=== PATIENT | female | born 1945 | race Caucasian/White ===

== ENCOUNTER → 2016-11-27 | Outpatient (CLI) | payer OTHER ==
[~2016-11-27] MED LIST: ASPCH81X PO; ATEN-173 PO; ATOR-24 PO; CALC500C70 PO; CHOL1CAP57 PO; GLUC1CAP35 PO; HYDR12.56 PO; LORA-741 PO; ZNTT/150 PO
[2016-11-27 13:19] LABS: BASO % 0.8 %; BASO ABS # 0.04 K/uL (0-0.2); COMPLETE YES; EOS % 1.8 %; HEMATOCRIT 38.5 % (37-47); IG% 0.2 %; LYMPH % 32.7 %; LYMPH ABS # 1.63 K/uL (1.2-3.4); MEAN CELL VOLUME 92.5 fL (80-100); MEAN CORPUSCULAR HEMOGLOBIN 31.5 pg (25-34); NEUT % 54.5 %; PLATELET COUNT 216 K/uL (130-400); RED BLOOD COUNT 4.16 M/uL (4.2-5.4); WHITE BLOOD COUNT 4.99 K/uL (4.8-10.8)
[2016-11-27 13:45] LABS: ALT/SGPT 26 U/L (12-78); BLOOD UREA NITROGEN 11 mg/dl (7-18); CALCIUM 9.1 mg/dl (8.5-10.1); CARBON DIOXIDE 30 mmol/L (21-32); CHLORIDE 107 mmol/L (98-107); CHOLESTEROL 159 mg/dl (0-200); CREATININE 0.76 mg/dl (0.60-1.20); GLUCOSE 93 mg/dl (70-99); POTASSIUM 4.3 mmol/L (3.5-5.1); SODIUM 141 mmol/L (136-145); TRIGLYCERIDES 184 mg/dl (0-150); VERY LOW DENSITY LIPOPROT CALC 37 mg/dl
[2016-11-27 13:48] LABS: ALB/GLOB RATIO 1.2 (0.9-2); ALKALINE PHOSPHATASE 70 U/L (45-117); AST/SGOT 15 U/L (15-37); CHOLESTEROL/HDL RATIO 3.5; HDL CHOLESTEROL 46 mg/dl; LDL CHOLESTEROL CALCULATED 76 mg/dl
== END | disposition home or self-care (01) ==
LOC: C.LABMFLN 07:45
PROVIDERS: ATTEND Family Medicine
DX: I10 Essential (primary) hypertension (principal); R39.9 Unspecified symptoms and signs involving the genitourinary system; E78.5 Hyperlipidemia, unspecified

== ENCOUNTER → 2016-12-10 | Outpatient (CLI) | payer OTHER | END | disposition home or self-care (01) | LOC: C.PATHSPEC 16:56 | PROVIDERS: ATTEND Dermatology | DX: L57.0 Actinic keratosis (principal) ==

== ENCOUNTER → 2017-02-10 | Outpatient (CLI) | payer OTHER ==
[2017-02-10 17:29] LABS: HEMATOCRIT 39.4 % (37-47); MEAN CELL VOLUME 93.4 fL (80-100); MEAN CORPUSCULAR HEMOGLOBIN 30.3 pg (25-34); MEAN CORPUSCULAR HGB CONC 32.5 g/dl (32-36); MEAN PLATELET VOLUME 9.8 fL (7.4-10.4); PLATELET COUNT 241 K/uL (130-400); RED BLOOD COUNT 4.22 M/uL (4.2-5.4); WHITE BLOOD COUNT 5.37 K/uL (4.8-10.8)
[2017-02-10 17:38] LABS: PARTIAL THROMBOPLASTIN RATIO 0.9; PROTHROMBIN TIME (PATIENT) 10.2 SECONDS (9.0-12.0)
[2017-02-10 17:46] LABS: POTASSIUM 4.1 mmol/L (3.5-5.1)
== END | disposition home or self-care (01) ==
LOC: C.LAB1850 16:28
PROVIDERS: ATTEND Physician Assistant
DX: Z01.818 Encounter for other preprocedural examination (principal)

== ENCOUNTER → 2017-02-14 | Day surgery (SDC) | payer OTHER ==
[2017-02-12 11:12] VITALS: Ht 157.5 cm; Wt 61.4 kg
[~2017-02-14] VITALS: Ht 157.5 cm; Wt 61.4 kg
[~2017-02-14] MED LIST changes: +ACETAMINOPHEN 325 MG TAB PO PRN; +ATROPINE SULFATE 0.1 MG/ML 5ML SYR IV PRN; +CEFAZOLIN 2000 MG/60 ML D5W IV SCH; +EpHEDrine SULFATE 50MG/5ML SYR ONE; +EpHEDrine SULFATE INJ 50 MG/ML AMP IV PRN; +FENTANYL CITRATE INJ 50 MCG/1 ML 2 ML VIAL IV PRN; +FENTANYL CITRATE INJ 50 MCG/1 ML 2 ML VIAL ONE; +LACTATED RINGER'S 1000ML 1,000 ML IV SCH; +LIDOCAINE HCL 2% 2 ML VIAL (20MG/ML) ONE; +LIDOCAINE/EPINEPHRINE 1% INJ 50 ML VIAL ONE; +METOCLOPRAMIDE HCL INJ 5 MG/ML 2 ML VIAL IV PRN; +MIDAZOLAM HCL 1 MG/ML 2ML VIAL ONE; +ONDANSETRON INJ 2 MG/ML 2 ML VIAL IV PRN; +ONDANSETRON INJ 2 MG/ML 2 ML VIAL ONE; +OXYCODONE/ACETAMINOPHEN 5-325 TAB PO PRN; +PATIENT'S ALLERGY INFO NEEDS ENTERED SCH; +PROPOFOL IV EMULSION 10 MG/ML 20 ML VIAL IV ONE; +SODIUM CHLORIDE 0.9% 1000ML 1,000 ML IV SCH
--- NOTE | 2017-02-14 12:47 | History & Physical Bridge - [place] ---
H&P Re-Evaluation Bridge Note: I have examined the patient, reviewed the History & Physical and in the interval since the performance of the History & Physical I have noted the following changes of clinical significance: No changes noted
[2017-02-14 14:19] VITALS: TEMP 36.8
--- NOTE | 2017-02-14 14:20 | [facility] Post Operative Brief Note ---
Immediate Operative Summary Operative Date Feb 14, 2017. Pre-Operative Diagnosis Right Lower Leg Squamous Cell Carcinoma Post-Operative Diagnosis Same Procedure(s) Performed Right Lower Extremity Excision Of Squamous Cell Carcinoma With Full Thickness Graft Surgeon Dr. Estrada Hydraulic Governor Assembler Surgeon(s) Sheila Frye PA-C Estimated Blood Loss 1 ml Findings SCC right lower leg, margins negative Specimens A.) Squamous Cell Skin Cancer right Lower Extremity- Suture @ 12:00 FROZEN Anesthesia sedation with local Complication(s) None Disposition Recovery Room / PACU
--- NOTE | 2017-02-14 14:20 | Discharge Instructions ---
Discharge Instructions Date of Service Feb 14, 2017. Admission Reason for Admission: Right Lower Leg Squamous Cell Carcinoma Discharge Discharge Diagnosis / Problem: Squamous cell carcinoma right lower leg Discharge Goals Goal(s): Decrease discomfort Activity Recommendations Activity Limitations: per Instructions/Follow-up section ACTIVITY RECOMMENDATIONS: __Normal activities _x_No bending, lifting or straining. Wear boot for at least 2 weeks. No weight bearing without the boot on __No driving __Driving allowed when you are off pain medications _x_Walking permitted with boot __You should have help at home for ___ days DRESSINGS: __No dressings required _x_Keep dressings dry/in place until first office visit __Remove dressings ___ and leave dressings off __Apply ice ___ days __Remove dressings and reapply garment __Apply antibiotic ointment (Bacitracin, Neosporin, etc) to wounds 3-4 times/ day for 10 days BATHING: _x_Keep dressings dry _x_Sponge bathing permitted __Showering permitted _x_No swimming, hot tubs or soaking in a tub MEDICATIONS: Resume previous medications unless instructed otherwise by your surgeon. _x_Do not use aspirin, Motrin, Advil or Ibuprofen as these may promote bleeding. Please use Tylenol. _x_Prescription(s) provided: pain medication and antibiotics OTHER INSTRUCTIONS: __Record drain output 2-3 times per day SPECIAL CARE INSTRUCTIONS: * It is normal to have a mild fever after surgery. If your temperature is higher than 101.5 degrees F, please call the office at [phone]. * Constipation is a typical side effect of pain medication. An over-the- counter stool softener will help relieve this. * Leaking around surgical drains may occur and should not cause concern. Sometimes these drains become clogged. If this happens, remove the bulb and milk the clot out of the tube, then replace the bulb. * Drainage from wounds after liposuction is normal and should be expected. Garments will become soiled. You should protect furniture and bedding. This drainage should mostly subside within 2-3 days. Leave garments in place unless instructed to remove them. * If you have unusual drainage from a wound or are concerned you have an infection or have any questions or concerns, please call the office at [phone]. FOLLOW UP VISIT: If not already scheduled, please call the office, , when you return home after surgery to schedule an appointment to be seen in __7_ days. . Current Hospital Diet Patient's current hospital diet: Discharge Diet Recommended Diet: Regular Diet Procedures Procedures Performed: Right Lower Extremity Excision Of Squamous Cell Carcinoma With Full Thickness Graft Pending Studies Studies pending at discharge: yes List of pending studies: pathology Laboratory Results Lipid Panel Test 11/27/16 09:35 Range/Units Triglycerides Level 184 H 0-150 mg/dl Cholesterol Level 159 0-200 mg/dl HDL Cholesterol 46 mg/dl Cholesterol/HDL Ratio 3.5 LDL Cholesterol, Calculated 76 mg/dl Medical Emergencies . Who to Call and When: Medical Emergencies: If at any time you feel your situation is an emergency, please call 911 immediately. . Non-Emergent Contact Non-Emergency issues call your: Primary Care Provider, Surgeon . "Provider Documentation" section prepared by Mary Kate Frye. . VTE Core Measure Inpt VTE Proph given/why not?: SCD's [place] Drug Monitoring Program Search Results: no issues identified
[2017-02-14 14:44] VITALS: BP 151/75; PULSE 74; O2SAT 98
--- NOTE | 2017-02-14 14:46 | Anesthesia Progress Nt - [facility] ---
Anesthesia Post Op Note Date & Time Feb 14, 2017 at 14:46 Vital Signs Pain Intensity: 0 Vital Signs Past 12 Hours Date Time Temp Pulse Resp B/P (MAP) Pulse Ox O2 Delivery O2 Flow Rate FiO2 02/14/17 14:44 74 16 151/75 (100) 98 Room Air 02/14/17 14:19 36.8 83 16 136/79 (98) 100 Room Air 02/14/17 10:24 36.4 56 22 169/94 (119) 95 Notes Mental Status: alert / awake / arousable, participated in evaluation Pt Amnestic to Procedure: Yes Nausea / Vomiting: adequately controlled Pain: adequately controlled Airway Patency, RR, SpO2: stable & adequate BP & HR: stable & adequate Hydration State: stable & adequate Anesthetic Complications: no major complications apparent
--- NOTE | 2017-02-14 15:55 | OPERATIVE REPORT ---
DATE OF OPERATION: 02/14/2017 PREOPERATIVE DIAGNOSIS: Right lower extremity squamous cell carcinoma. POSTOPERATIVE DIAGNOSIS: Same. PROCEDURE: Excision of squamous cell carcinoma right anterior lower extremity with full thickness skin graft. SURGEON: Dr. Lucy Estrada. MEDIA EXECUTIVE: Mary Kate Frye PA-C. ANESTHESIA: Local with sedation. COMPLICATIONS: None. INDICATION FOR THE PROCEDURE: The patient is a 71-year-old female who was referred to me by Dr. Anderson after having undergone biopsy of a rapidly growing lesion of her right anterior lower leg which was found to be squamous cell carcinoma. This large size and location, office excision was not going to be achievable, and therefore we elected to proceed with excision at the surgery center with primary closure versus full thickness skin grafting. OPERATION AND FINDINGS: BRIEF DESCRIPTION OF THE PROCEDURE: Risks, benefits, and alternatives of the procedure were explained to the patient who agreed and signed consent. She was identified and marked in the preoperative holding area. She was brought to the operating room where she was positioned supine and placed under sedation without incident. Surgical site was prepped and draped sterilely. A time-out procedure was performed. The nodule as well as the surrounding erythema was measured and marked. 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 I therefore marked additional 5 mm margin and injected 1% lidocaine with epinephrine. A 15 blade scalpel made the circular incision. Incision was carried into subcutaneous fat. The lesion was removed with some underlying subcutaneous fat. As I was planning on grafting I did elect to send the specimen for frozen section while harvesting the graft. Hemostasis was achieved with electrocautery. Suture was marked 12 o'clock and the lesion was sent for pathology. Final defect size was 4 x 3.5 cm. A graft harvest was marked for the right groin in an elliptical fashion. Lidocaine 1% with epinephrine was used to anesthetize the area. A 15-blade scalpel made the elliptical incision. Skin was removed with some underlying subcutaneous tissue. Hemostasis was achieved. The wound was reapproximated using 3-0 PDS and 4-0 Monocryl running subcuticular suture. The graft was defatted and once the graft was adequately thinned and hair follicles had been removed. The graft was transferred to the recipient bed. At this point the lab did call and say that 9 o'clock margin was closest but all margins were clearly negative. The graft was sutured into place using 4-0 chromic interrupted sutures as well as 4-0 silk tie over bolster sutures. Xeroform and cotton was tied over the graft to provide pressure. The surgical site was dressed using dry dressings and an Jose Cruz wrap. The patient has a CAM walker which she will use. The procedure was tolerated well. The patient was awakened and transferred to recovery room in satisfactory condition. I attest to the content of the Intraoperative Record and any orders documented therein. Any exception s are noted below.
== END | disposition home or self-care (01) ==
LOC: X.SURG 09:09
PROVIDERS: ATTEND Plastic Surgery
DX: C44.722 Squamous cell carcinoma of skin of right lower limb, including hip (principal); I25.10 Atherosclerotic heart disease of native coronary artery without angina pectoris; I10 Essential (primary) hypertension; E78.5 Hyperlipidemia, unspecified; K21.9 Gastro-esophageal reflux disease without esophagitis; E55.9 Vitamin D deficiency, unspecified; M81.0 Age-related osteoporosis without current pathological fracture; Z79.82 Long term (current) use of aspirin; Z79.899 Other long term (current) drug therapy

== ENCOUNTER → 2017-04-17 | Outpatient (CLI) | payer OTHER ==
[~2017-04-17] MED LIST changes: -ACETAMINOPHEN 325 MG TAB PO PRN; -ASPCH81X PO; -ATROPINE SULFATE 0.1 MG/ML 5ML SYR IV PRN; -CEFAZOLIN 2000 MG/60 ML D5W IV SCH; -EpHEDrine SULFATE 50MG/5ML SYR ONE; -EpHEDrine SULFATE INJ 50 MG/ML AMP IV PRN; -FENTANYL CITRATE INJ 50 MCG/1 ML 2 ML VIAL IV PRN; -FENTANYL CITRATE INJ 50 MCG/1 ML 2 ML VIAL ONE; -LACTATED RINGER'S 1000ML 1,000 ML IV SCH; -LIDOCAINE HCL 2% 2 ML VIAL (20MG/ML) ONE; -LIDOCAINE/EPINEPHRINE 1% INJ 50 ML VIAL ONE; -METOCLOPRAMIDE HCL INJ 5 MG/ML 2 ML VIAL IV PRN; -MIDAZOLAM HCL 1 MG/ML 2ML VIAL ONE; -ONDANSETRON INJ 2 MG/ML 2 ML VIAL IV PRN; -ONDANSETRON INJ 2 MG/ML 2 ML VIAL ONE; -OXYCODONE/ACETAMINOPHEN 5-325 TAB PO PRN; -PATIENT'S ALLERGY INFO NEEDS ENTERED SCH; -PROPOFOL IV EMULSION 10 MG/ML 20 ML VIAL IV ONE; -SODIUM CHLORIDE 0.9% 1000ML 1,000 ML IV SCH
== END | disposition home or self-care (01) ==
LOC: C.PATHSPEC 17:28
PROVIDERS: ATTEND Dermatology
DX: L82.1 Other seborrheic keratosis (principal)

== ENCOUNTER → 2017-12-04 | Outpatient (CLI) | payer OTHER ==
[~2017-12-04] MED LIST changes: +RANI150T85 PO; -ZNTT/150 PO
[2017-12-04 13:08] LABS: BASO % 0.7 %; BASO ABS # 0.04 K/uL (0-0.2); EOS % 1.6 %; EOS ABS # 0.09 K/uL (0-0.5); HEMATOCRIT 37.9 % (37-47); HEMOGLOBIN 13.2 g/dL (12.0-16.0); LYMPH % 37.9 %; LYMPH ABS # 2.07 K/uL (1.2-3.4); MEAN CORPUSCULAR HGB CONC 34.8 g/dl (32-36); MEAN PLATELET VOLUME 9.8 fL (7.4-10.4); MONO % 9.5 %; MONO ABS # 0.52 K/uL (0.11-0.59); NEUT % 50.3 %; NEUT ABS # 2.74 K/uL (1.4-6.5); PLATELET COUNT 248 K/uL (130-400); RED CELL DISTRIBUTION WIDTH CV 12.9 % (11.5-14.5); RED CELL DISTRIBUTION WIDTH SD 43.4 fL (36.4-46.3); WHITE BLOOD COUNT 5.46 K/uL (4.8-10.8)
[2017-12-04 13:32] LABS: ALBUMIN 3.9 gm/dl (3.4-5.0); ALT/SGPT 31 U/L (12-78); AST/SGOT 21 U/L (15-37); BLOOD UREA NITROGEN 14 mg/dl (7-18); CALCIUM 8.8 mg/dl (8.5-10.1); CARBON DIOXIDE 27 mmol/L (21-32); CREATININE 0.84 mg/dl (0.60-1.20); GLUCOSE 98 mg/dl (70-99); POTASSIUM 3.7 mmol/L (3.5-5.1); SODIUM 137 mmol/L (136-145)
[2017-12-04 13:42] LABS: ALKALINE PHOSPHATASE 65 U/L (45-117); CHOLESTEROL 163 mg/dl (0-200); LDL CHOLESTEROL CALCULATED 80 mg/dl; TOTAL PROTEIN 7.5 gm/dl (6.4-8.2)
== END | disposition home or self-care (01) ==
LOC: C.LABMFLN 10:26
PROVIDERS: ATTEND Family Medicine
DX: I25.10 Atherosclerotic heart disease of native coronary artery without angina pectoris (principal); E78.5 Hyperlipidemia, unspecified

== ENCOUNTER → 2017-12-26 | Outpatient (CLI) | payer OTHER | END | disposition home or self-care (01) | LOC: C.LABMFLN 14:30 | PROVIDERS: ATTEND Family Medicine | DX: R10.9 Unspecified abdominal pain (principal) ==

== ENCOUNTER 2018-11-03 04:52 | Inpatient (IN) ==
--- NOTE | 2018-10-20 09:33 | Anesthesiology Consultation ---
Date of Service October 20, 2018 Assessment & Plan (1) Encounter for pre-operative examination: Chart Review Chart Review: Acceptable Risk for Surgery and Patient seen in Pre Admission Testing Consults Requested none Teaching & Discussion Pre-Anesthesia Teaching/Discussion Notes: Instructed NPO after midnight before surgery, except medications with 15 cc of water. Medication instructions provided according to the PAT guidelines. History Surgery Operation Date: 11/03/18 12:30 Proposed Procedures p Left Anterior Total Hip Arthroplasty - Chetan Marina DO Height/Weight Height: 5 ft 2 in Weight: 61.7 kg Allergies Allergy/AdvReac Type Severity Reaction Status Date / Time No Known Drug Allergies Allergy Unknown . Verified 10/12/18 14:56 Medications Home Medications Medication Instructions Recorded Confirmed Last Taken aspirin [Aspirin Low Dose] 81 mg PO QPM 10/12/18 10/12/18 Unknown atenolol 25 mg PO QAM 10/12/18 10/12/18 Unknown atorvastatin 40 mg PO PM 10/12/18 10/12/18 Unknown calcium carbonate-vitamin D3 1 cap PO BID 10/12/18 10/12/18 Unknown [Calcium 600 + D(3)] cholecalciferol (vitamin D3) 2,000 unit PO QAM 10/12/18 10/12/18 Unknown [Vitamin D3] [id number]-aguila-bosw 1 tab PO BID 10/12/18 10/12/18 Unknown [Glucosamine-Chondroitin 3X] hydrochlorothiazide 12.5 mg PO QAM 10/12/18 10/12/18 Unknown lorazepam 0.5 mg PO HS PRN 10/12/18 10/12/18 Unknown ranitidine HCl 150 mg PO BID 10/12/18 10/12/18 Unknown Past Medical History Medical History GERD (gastroesophageal reflux disease) High cholesterol History of skin cancer RIGHT LEG Hypertension Osteoarthritis Past Surgical History Surgical History Hx of appendectomy Hx of cardiac cath "YEARS" AGO DEVELOPED SHORTNESS OF BREATH - SEEN BY CARDIOLOGY ([facility]). SENT TO [facility] IN [place] FOR CATH. Hx of colonoscopy Past Anesthesia History No Hx of Anesthesia Complications and No Family Hx of Anesthesia Complications History of PONV No Motion Sickness Screening History of Motion Sickness: No Social History Smoking Status: Never smoker Do You Dip or Chew Tobacco: No Hx Alcohol Use: No Hx Substance Use: No Exercise / Class Metabolic Activity II 4-5 Yardwork/Stairs/Walk up hill (Cleans homes for elderly, walks on nice days, able to climb FOS. Denies CP or SOB. ) Review of Systems Patient denies chest pain, shortness of breath, dyspnea on exertion, cough, wheezing, palpitations. +joint pain (hip) +acid reflux (controlled with medications) Physical Exam Vital Signs BP: 131/82 P: 62 R: 14 T: 97.4 SPO2: 100% on RA ENMT Mouth: + dentures (Upper and Lower) and + edentulous Thyromental Distance: < 3.5 Finger Breadths (3) Mallampati Class: II Neck normal visual inspection and trachea midline; neck extension not limited Respiratory normal respiratory effort Auscultation: lungs clear to auscultation bilaterally Cardiovascular Rate/Rhythm: regular rate and regular rhythm Heart Sounds: no murmur Vessels: no carotid bruit Neurologic moves all extremities Psychiatric Orientation: alert and oriented x 3 Testing Electrocardiogram Date: 10/20/18 Findings: + NSR @ (60) Left axis deviation. Non specific ST abnormality. Chest X-Ray Date: 10/20/18 Findings: + NAD Stress Test Date: 06/28/13 Type: exercise Resting EF: >70% Functional capacity of 4.4 METS. Adequate cardiovascular stress. No significant arrhythmias were noted. Normal blood pressure response to exercise. Accelerated heart rate response may be related to holding betablocker or it may suggest poor physical conditioning. Borderline EKG changes noted with exercise which may suggest ischemia or it may be due to LVH. No echocardiographic wall motion abnormalities noted to suggest ischemia. Upsloping ST depression of 0.5-1.0 mm in leads II, III, aVF, and V6 along with accelerated HR response noted early in exercise. Patient held atenolol in preparation for testing as direced. Occasional PACs were noted during stress. Sinus rhythm was noted at rest. The stress test was terminated due to target heart rate achieved. Heart rate response to stress was normal. Blood pressure response to exercise was normal. Laboratory Results 10/20/18 09:56 10/20/18 09:56 Blood Type A Positive 10/20/18 Antibody Screen NEGATIVE 10/20/18: PT 10.2 Seconds (9.0-12.0) 10/20/18: INR 1.0 (0.9-1.1) 10/20/18: APTT 25.0 Seconds (21.0-31.0) 10/20/18
--- NOTE | 2018-10-20 09:36 | PAT Medication Instructions ---
Medication Instructions Date of Service October 20, 2018 Home Medications aspirin [Aspirin Low Dose] 81 mg PO QPM atenolol 25 mg PO QAM atorvastatin 40 mg PO PM calcium carbonate-vitamin D3 1 cap PO BID cholecalciferol (vitamin D3) 2,000 unit PO QAM [id number]-[id number]-bosw [Glucosamine-Chondroitin 3X] 1 tab PO BID hydrochlorothiazide 12.5 mg PO QAM lorazepam 0.5 mg PO HS PRN ranitidine HCl 150 mg PO BID STOP taking 2 weeks before surgery [id number]-[id number]-bosw [Glucosamine-Chondroitin 3X] 1 tab PO BID DO NOT take the morning of surgery calcium carbonate-vitamin D3 1 cap PO BID cholecalciferol (vitamin D3) 2,000 unit PO QAM hydrochlorothiazide 12.5 mg PO QAM Take morning of surgery With a small sip of water, OTHERWISE NOTHING TO EAT OR DRINK AFTER MIDNIGHT: atenolol 25 mg PO QAM ranitidine HCl 150 mg PO BID Take evening before surgery aspirin [Aspirin Low Dose] 81 mg PO QPM atorvastatin 40 mg PO PM calcium carbonate-vitamin D3 1 cap PO BID lorazepam 0.5 mg PO HS PRN ranitidine HCl 150 mg PO BID Other Notes If you have any questions please call us at [phone] or [phone] or [phone] or [phone]
--- NOTE | 2018-10-20 10:23 | XRay Report ---
XR chest Pre-admission PA/Lat CLINICAL HISTORY: Preoperative chest COMPARISON STUDY: No previous studies for comparison. FINDINGS: The heart is normal in size. There is aortic tortuosity. There is no failure. There is no focal pulmonary consolidation. There are no pleural effusions.[ IMPRESSION: No active disease in the chest. Electronically signed by: Scottie Whitaker M.D. 10/20/2018 10:21 AM
[2018-10-20 10:55] LABS: Basophils # (auto) 0.03 K/uL (0-0.2); Basophils % (auto) 0.5 %; Eosinophils # (auto) 0.09 K/uL (0-0.5); Eosinophils % (auto) 1.6 %; Hematocrit (blood only) 39.5 % (37-47); Hemoglobin 13.4 g/dL (12.0-16.0); Lymphocytes # (auto) 1.68 K/uL (1.2-3.4); Lymphocytes % (auto) 29.1 %; Mean Corpuscular Hgb Conc 33.9 g/dL (32-36); Mean Corpuscular Volume 95.4 fL (80-100); Mean Platelet Volume 9.7 fL (7.4-10.4); Monocytes # (auto) 0.37 K/uL (0.11-0.59); Monocytes % (auto) 6.4 %; Neutrophils # (auto) 3.61 K/uL (1.4-6.5); Neutrophils % (auto) 62.4 %; Platelet Count 230 K/uL (130-400); RDW Coefficient of Variation 12.8 % (11.5-14.5); RDW Standard Deviation 44.4 fL (36.4-46.3); Red Blood Count 4.14 M/uL (4.2-5.4); White Blood Count 5.78 K/uL (4.8-10.8)
[2018-10-20 11:22] LABS: BUN Creatinine Ratio 17.4 (10-20); Calcium 8.6 mg/dl (8.5-10.1); Creatinine Clr Calc Pharmacy 55.3 ml/min; Est GFR (African American) 88.9; Est GFR (Non-African American) 76.7; Potassium 4.1 mmol/L (3.5-5.1)
[2018-10-20 11:35] LABS: Partial Thromboplastin Ratio 0.9; Prothrombin Time 10.2 Seconds (9.0-12.0)
[2018-11-03] MEDS ORDERED: ROPIVACAINE 0.5% HCL/PF 150 MG, BUPIVACAINE 0.5% MPF 30 ML, EPINEPHrine 30MG/30ML (OR U... INFIL SCH (06:00)
[2018-11-03] MEDS ORDERED: ACETAMINOPHEN 500 MG TAB PO SCH (06:00)
[2018-11-03] MEDS ORDERED: LR 60ML/HR IV SCH (06:00)
[2018-11-03] MEDS ORDERED: GABAPENTIN 300 MG PO SCH (06:00)
[2018-11-03] MEDS ORDERED: CEFAZOLIN 2000MG 2,000 MG/15 ML SYR IV SCH (06:00)
[2018-11-03] MEDS ORDERED: LR 500ML BOLUS, THEN 15ML/HR IV SCH (06:00)
[2018-11-03] MEDS ORDERED: FAMOTIDINE 20 MG TAB PO SCH (06:00)
[2018-11-03] MEDS ORDERED: TRANEXAMIC ACID 1,000 MG **IV Pre-op IV SCH (06:00)
[2018-11-03] MEDS ORDERED: BUPIVACAINE 0.5 % 5 MG/1 ML PF 10ML VIAL ONE (06:19)
--- NOTE | 2018-11-03 06:19 | History & Physical Report ---
Date of Service November 03, 2018 Assessment & Plan (1) Osteoarthritis of left hip: We will proceed with a left anterior total hip arthroplasty. Postoperatively she will be started on aspirin for DVT prophylaxis. She will be kept overnight in the hospital for postop medical management. She plans to use AQH upon discharge. Present on Admission?: Yes History of Present Illness Chief Complaint: Primary osteoarthritis of the left hip Primary Care Provider: Scarlet Jeffrey MD Radha is a pleasant 73-year-old female who is been dealing with chronic increasing left hip and groin pain. X-rays and clinical examination have been diagnostic for primary osteoarthritis of the left hip. After failing conservative treatment, she has elected proceed with a left total hip arthroplasty. Allergies Allergy/AdvReac Type Severity Reaction Status Date / Time No Known Drug Allergies Allergy Unknown . Verified 11/03/18 05:44 Home Medications Home Medications Medication Instructions Recorded Confirmed Type aspirin [Aspirin Low Dose] 81 mg PO QPM 10/12/18 11/03/18 History atenolol 25 mg PO QAM 10/12/18 11/03/18 History atorvastatin 40 mg PO PM 10/12/18 11/03/18 History calcium carbonate-vitamin D3 1 cap PO BID 10/12/18 11/03/18 History [Calcium 600 + D(3)] cholecalciferol (vitamin D3) 2,000 unit PO QAM 10/12/18 11/03/18 History [Vitamin D3] [id number]-C-aguila-bosw 1 tab PO BID 10/12/18 11/03/18 History [Glucosamine-Chondroitin 3X] hydrochlorothiazide 12.5 mg PO QAM 10/12/18 11/03/18 History lorazepam 0.5 mg PO HS PRN 10/12/18 11/03/18 History ranitidine HCl 150 mg PO BID 10/12/18 11/03/18 History Past Med/Surg History Medical History GERD (gastroesophageal reflux disease) High cholesterol History of skin cancer RIGHT LEG Hypertension Osteoarthritis Surgical History Hx of appendectomy Hx of cardiac cath "YEARS" AGO DEVELOPED SHORTNESS OF BREATH - SEEN BY CARDIOLOGY ([facility]). SENT TO [facility] IN [place] FOR CATH. Hx of colonoscopy Social History Preferred Language: Armenian Communication Ability: Effective Beliefs That Will Affect Care: None Current Living Situation: Spouse Other Information That Helps Us Care for You: No Feels Safe at Home: Yes Safety Concerns: Feels Safe At This Time Smoking Status: Never smoker Hx Alcohol Use: No Hx Substance Use: No Review of Systems All systems reviewed & are unremarkable except as noted in HPI & below Physical Exam Vital Signs (Past 24 Hours): Last Vital Signs Temp 36.5 C 11/03/18 05:55 Pulse 64 11/03/18 05:55 Resp 20 11/03/18 05:55 BP 145/99 H 11/03/18 05:55 Pulse Ox 100 11/03/18 05:55 Constitutional: WD/WN, vitals as above Eyes: PERRL, conjunctivae normal, anicteric sclerae ENMT: external ear and nose normal, oropharynx normal Neck: trachea midline, no thyromegaly Respiratory: normal respiratory effort Cardiovascular: RRR, no murmur, no edema Gastrointestinal (Abdomen): normal bowel sounds, soft, nontender, no hepatospl enomegaly Musculoskeletal: Physical examination of the left hip reveals decreased range of motion with flexion, internal and external rotation. There is significant groin pain with forced internal rotation of the hip his leg lengths are essentially equal. Psychiatric: A+Ox3, euthymic affect Results & Data Diagnostic Findings Radiographs of the left hip and pelvis demonstrate advanced osteoarthritis with joint space narrowing osteophyte formation and ygzh-jo-byvx articulation. Medications Administered Acetaminophen (Tylenol) 1,000 mg PO PREOP CARMEN Stop: 11/03/18 18:00 Last Admin: 11/03/18 05:51 Dose: 1,000 mg Documented by: [id number] Famotidine (Pepcid) 20 mg PO PREOP CARMEN Stop: 11/03/18 18:00 Last Admin: 11/03/18 05:50 Dose: 20 mg Documented by: [id number] Gabapentin (Neurontin) 300 mg PO PREOP CARMEN Stop: 11/03/18 18:00 Last Admin: 11/03/18 05:50 Dose: 300 mg Documented by: [id number] Lactated Ringer's (Lr) 1,000 mls @ 15 mls/hr IV .Q24H CARMEN Stop: 11/03/18 18:00 Last Admin: 11/03/18 05:35 Dose: 999 mls/hr Documented by: [id number]
--- NOTE | 2018-11-03 06:24 | History & Physical Bridge Note ---
Date of Service November 03, 2018 History & Physical Bridge Note I have examined the patient, reviewed the History & Physical and in the interval since the performance of the History & Physical I have noted the following changes of clinical significance: no changes noted
[2018-11-03] MEDS ORDERED: ORTHO JOINT ANESTHETIC ONE (06:28)
[2018-11-03] MEDS ORDERED: POVIDONE-IODINE OP SOLN 30 ML BTL ONE (06:28)
[2018-11-03] MEDS ORDERED: TRANEXAMIC ACID 1,000 MG **IV Intra-op IV SCH (06:30)
[2018-11-03] MEDS ORDERED: fentaNYL citrate 100 MCG/2 ML VIAL ONE (06:40)
[2018-11-03] MEDS ORDERED: MIDAZOLAM HCL 1 MG/ML 2ML VIAL ONE (06:40)
[2018-11-03] MEDS ORDERED: KETOROLAC 30 MG/ML VIAL IV PRN (06:45)
[2018-11-03] MEDS ORDERED: ONDANSETRON INJ 2 MG/ML 2 ML VIAL IV PRN ×2 (06:45→10:04)
[2018-11-03] MEDS ORDERED: ePHEDrine sulfate 50 MG/ML AMP IV PRN (06:45)
[2018-11-03] MEDS ORDERED: PHENYLEPHRINE 100MCG/ML 5ML SYR IV PRN (06:45)
[2018-11-03] MEDS ORDERED: ATROPINE SULFATE 0.1 MG/ML 10ML SYR IV PRN (06:45)
[2018-11-03] MEDS ORDERED: HYDROmorphone INJ 1 MG/ML SYRINGE IV PRN (06:45)
[2018-11-03] MEDS ORDERED: PROPOFOL IV EMULSION 10 MG/ML 20 ML VIAL IV ONE (07:29)
--- NOTE | 2018-11-03 08:46 | Operative Report ---
Post Operative Report Pre & Post Diagnosis Operation Date: 11/03/18 07:00 Pre-Op Diagnosis: Left Hip Degenerative Joint Disease Post-Op Diagnosis: Left Hip Degenerative Joint Disease Procedure Operation Date: 11/03/18 07:00 Actual Procedures p Left Anterior Total Hip Arthroplasty(Left) - Chetan Marina DO Surgeon Chetan Marina DO Human Resources Department Supervisor Chetan Tsai PAC Estimated Blood Loss 250 Findings Consistent with Post-Op Diagnosis Specimens Left femoral head Complications none Disposition Disposition: Recovery Room Indications Radha is a pleasant 73-year-old female who is been dealing with chronic increasing left hip and groin pain. X-rays and clinical examination have been diagnostic for primary osteoarthritis of the left hip. After failing conservative treatment, she had elected proceed with a left total hip arthroplasty. Description of Procedure Implants used Biomet Taperloc total hip arthroplasty system with a size 7 high offset Taperloc stem, a 50 mm G7 cup with a 25mm screw, an E1 polyethylene liner, a 36mm ceramic head with a 0 neck. Patient arrived at the hospital for the above procedure. They were seen in the preoperative holding area and the operative extremity was identified and signed. They were given a spinal anesthetic. They were given a preoperative antibiotic and TXA. They were taken back To the operating room and laid on the table in the supine position. The leg was brought out through a Puristst leg positioner. The hip was then prepped and draped in sterile fashion. A timeout was done and the patient in upper extremities properly identified. An anterior approach was used. Dissection was taken down through the fascia and the tensor muscle belly was retracted laterally and the rectus was retracted medially. The circumflex vessels were identified and ligated. The capsule was then incised and tagged for later repair. The femoral neck was then cut and the femoral head was removed. The acetabulum was exposed. Time was spent doing a complete circumferential labral release. Sequential reaming of the acetabulum up to a size 49 reamer was done. Final reamings were done under fluoroscopy to ensure appropriate version. A Biomet 50 mm G7 cup was then impacted into place. A single 25 mm screw was placed. The E1 polyethylene liner was then snapped into place. Surrounding soft tissues were then injected with 100 cc of an orthopedic pain control cocktail. The proximal femur was then exposed. Sequential broaching up to a size 7 broach was done. Off that broach a size 36 head with a 0 neck was trialed. The hip was reduced and fluoroscopic images showed anatomic alignment of the implants in acceptable length. The broach was removed. The final size 7 high offset Taperloc stem was then impacted into place. A ceramic 36 mm head with a 0 neck was then impacted into place in the hip was reduced. Final fluoroscopic images showed anatomic reduction of the hip. The capsule was then closed with #1 Vicryl suture. A dilute betadyne lavage was then done for 3 minutes. The joint was then irrigated with normal saline solution. The fascia was closed with #1 PDS suture. Skin was closed with 2-0 Vicryl, jose martin, and a Tiffanie VAC dressing. The patient was then transferred to a hospital bed and taken to the post anesthesia care unit in stable condition. They tolerated the procedure well. I attest to the content of the Intraoperative Record and any orders documented therein. Any exceptions are noted below.
--- NOTE | 2018-11-03 09:20 | XRay Report ---
XR hip 1V LT w pelvis CLINICAL HISTORY: IN PACU - A/P PELVIS and LATERAL HIP COMPARISON: None. DISCUSSION: Anatomic alignment post total left hip arthroplasty. Good contact them prosthetic and und erlying bone. Surgical drains are in position. Expected soft tissue postoperative change IMPRESSION: Anatomic alignment post total left hip arthroplasty. The above report was generated using voice recognition software. It may contain grammatical, syntax or spelling errors. Electronically signed by: Guicho Vincent M.D. 11/03/2018 9:19 AM
--- NOTE | 2018-11-03 09:36 | Anesthesiology Progress Note ---
Date of Service November 03, 2018 Anesthesia Post Procedure Vital Signs Vital Signs: Temp Pulse Pulse Resp BP BP Pulse Ox 11/03/18 09:30 61 13 107/63 97 11/03/18 09:25 60 14 114/66 96 11/03/18 09:20 64 15 97 11/03/18 09:15 65 18 112/67 97 11/03/18 09:11 78 15 89/60 L 100 11/03/18 09:10 79 13 100 11/03/18 09:05 63 12 111/77 99 11/03/18 09:00 74 13 105/77 100 11/03/18 08:57 36.5 C 79 80 14 104/63 104/63 95 11/03/18 05:55 36.5 C 64 20 145/99 H 100 Pain Intensity Left Hip: Pain Intensity: 0 Notes Mental Status: alert / awake / arousable Patient Amnestic to Procedure: Yes Nausea / Vomiting: adequately controlled Pain: adequately controlled Airway Patency, RR, SpO2: stable & adequate BP & HR: stable & adequate Hydration State: stable & adequate Anesthetic Complications: no major complications apparent
[2018-11-03] MEDS ORDERED: HYDROmorphone INJ 0.5 MG/0.5 ML SYR IV PRN (10:04)
[2018-11-03] MEDS ORDERED: METOCLOPRAMIDE HCL INJ 5 MG/ML 2 ML VIAL IV PRN (10:04)
[2018-11-03] MEDS ORDERED: LORazepam 0.5 MG TAB PO PRN (10:04)
[2018-11-03] MEDS ORDERED: BISACODYL 10 MG SUPP PR PRN (10:04)
[2018-11-03] MEDS ORDERED: NALOXONE HCL 0.4 MG/1 ML VIAL/CARP IV PRN (10:04)
[2018-11-03] MEDS ORDERED: MAGNESIUM HYDROXIDE SUSP 30 ML UDC PO PRN (10:04)
[2018-11-03] MEDS: SODIUM CHLORIDE 0.9% 1000ML 1,000 ML IV SCH ×2 (11:54→20:23)
[2018-11-03] MEDS: DOCUSATE SODIUM 100 MG CAP PO SCH ×2 (11:54→20:23)
[2018-11-03] MEDS: ASPIRIN 81 MG ECTAB PO SCH ×2 (11:54→20:23)
[2018-11-03] MEDS: ATENOLOL 25 MG TABLET PO SCH (11:55)
[2018-11-03] MEDS: MULTIVITAMIN TAB PO SCH (11:55)
[2018-11-03] MEDS: hydroCHLOROthiazide 25 MG TAB PO SCH (12:44)
[2018-11-03] MEDS: KETOROLAC TROMETHAMINE 15 MG/ML VIAL IV SCH ×3 (12:45→23:33)
--- NOTE | 2018-11-03 13:23 | Fluoroscopy Report ---
FL hip LT 1V CLINICAL HISTORY: LT ANTERIOR TOTALhip replacement COMPARISON STUDY: None FLUOROSCOPY TIME: 44 seconds NUMBER OF FLUOROSCOPIC IMAGES: 3 FINDINGS: Left total hip replacement. Anterior approach. IMPRESSION: Left total hip replacement. Anterior approach. The above report was generated using voice recognition software. It may contain grammatical, syntax or spelling errors. Electronically signed by: Guicho Vincent M.D. 11/03/2018 1:22 PM
[2018-11-03] MEDS: ACETAMINOPHEN 500 MG TAB PO SCH ×2 (13:54→21:56)
[2018-11-03] MEDS ORDERED: CEFAZOLIN 1000MG 1,000 MG/7.5 ML SYR IV SCH (15:00)
[2018-11-03] MEDS: ATORVASTATIN 40 MG TAB PO SCH (20:23)
[2018-11-03] MEDS: SENNA 8.6 MG TAB PO SCH (20:23)
[2018-11-04] MEDS: ACETAMINOPHEN 500 MG TAB PO SCH ×3 (05:37→20:59)
[2018-11-04] MEDS: KETOROLAC TROMETHAMINE 15 MG/ML VIAL IV SCH ×3 (05:38→18:08)
[2018-11-04 05:57] LABS: Basophils # (auto) 0.01 K/uL (0-0.2); Basophils % (auto) 0.1 %; Eosinophils # (auto) 0.01 K/uL (0-0.5); Eosinophils % (auto) 0.1 %; Hematocrit (blood only) 28.7 % (37-47); Hemoglobin 9.5 g/dL (12.0-16.0); Immature Granulocytes # (auto) 0.03 K/uL (0.00-0.02); Immature Granulocytes % (auto) 0.3 %; Lymphocytes # (auto) 1.03 K/uL (1.2-3.4); Lymphocytes % (auto) 10.7 %; Mean Corpuscular Hgb Conc 33.1 g/dL (32-36); Mean Corpuscular Volume 94.1 fL (80-100); Monocytes # (auto) 0.83 K/uL (0.11-0.59); Monocytes % (auto) 8.6 %; Neutrophils # (auto) 7.71 K/uL (1.4-6.5); Neutrophils % (auto) 80.2 %; Platelet Count 177 K/uL (130-400); RDW Coefficient of Variation 12.7 % (11.5-14.5); RDW Standard Deviation 42.9 fL (36.4-46.3); Red Blood Count 3.05 M/uL (4.2-5.4); White Blood Count 9.62 K/uL (4.8-10.8)
[2018-11-04 06:28] LABS: BUN Creatinine Ratio 16.4 (10-20); Calcium 7.9 mg/dl (8.5-10.1); Creatinine Clr Calc Pharmacy 56.6 ml/min; Est GFR (African American) 91.9; Est GFR (Non-African American) 79.3; Potassium 3.7 mmol/L (3.5-5.1)
--- NOTE | 2018-11-04 07:03 | Orthopedic Progress Note ---
Date of Service November 04, 2018 Assessment & Plan (1) Osteoarthritis of left hip: Overall she is doing fairly well. She not having too much pain in the hip. She is been ambulating well with the nursing staff. She will be seen by physical therapy today. We plan to discharge her to home tomorrow. She is on aspirin for DVT prophylaxis. Present on Admission?: Yes Subjective Radha was seen and examined at bedside this morning. Overall she is doing very well. She not having much pain in the hip. She is happy with her progress. She is already been ambulating around the hallways. She has no c omplaints. Physical Exam Vital Signs (Past 24 Hours): Last Vital Signs Temp 36.5 C 11/04/18 02:04 Pulse 80 11/04/18 02:04 Resp 16 11/04/18 02:04 BP 157/79 H 11/04/18 02:04 Pulse Ox 100 11/04/18 02:04 Musculoskeletal: On physical examination of the left hip, the Tiffanie VAC dressing is to suction. Her leg lengths are equal. She is active dorsiflexion and plantarflexion of her left ankle. Sensation is intact throughout. Results & Data Laboratory Results H & H 10/20/18 11/04/18 Range/Units 09:56 05:15 Hgb 13.4 9.5 L (12.0-16.0) g/dL Hct 39.5 28.7 L (37-47) % Coagulation 10/20/18 Range/Units 09:56 INR 1.0 (0.9-1.1) Diagnostic Findings Postoperative x-rays of the left hip show the prosthesis to be in anatomic alignment without any evidence of fracture, dislocation, or loosening.
[2018-11-04] MEDS: DOCUSATE SODIUM 100 MG CAP PO SCH ×2 (08:29→20:59)
[2018-11-04] MEDS: ASPIRIN 81 MG ECTAB PO SCH ×2 (08:29→20:58)
[2018-11-04] MEDS: hydroCHLOROthiazide 25 MG TAB PO SCH (08:29)
[2018-11-04] MEDS: MULTIVITAMIN TAB PO SCH (08:29)
--- NOTE | 2018-11-04 08:29 | Anesthesiology Progress Note ---
Date of Service November 04, 2018 Anesthesia Post Procedure Vital Signs Vital Signs: Temp Pulse Pulse Pulse Resp BP BP 11/04/18 07:03 36.5 C 85 16 128/80 11/04/18 02:04 36.5 C 80 16 157/79 H 11/03/18 23:30 36.5 C 78 16 136/64 11/03/18 18:48 36.5 C 84 16 109/70 11/03/18 15:22 36.6 C 80 16 108/66 11/03/18 12:57 36.5 C 83 16 122/73 11/03/18 11:58 36.4 C L 72 16 11/03/18 11:34 122/76 11/03/18 10:59 36.4 C L 71 16 117/78 11/03/18 10:27 36.4 C L 60 16 124/76 11/03/18 10:04 36.4 C L 67 16 119/82 11/03/18 09:45 59 L 13 117/65 11/03/18 09:40 58 L 12 108/60 11/03/18 09:35 36.6 C 59 L 64 13 107/65 107/65 11/03/18 09:30 61 13 107/63 11/03/18 09:25 60 14 114/66 11/03/18 09:20 64 15 11/03/18 09:15 65 18 112/67 11/03/18 09:11 78 15 89/60 L 11/03/18 09:10 79 13 11/03/18 09:05 63 12 111/77 11/03/18 09:00 74 13 105/77 11/03/18 08:57 36.5 C 79 80 14 104/63 104/63 Pulse Ox 11/04/18 07:03 100 11/04/18 02:04 100 11/03/18 23:30 94 11/03/18 18:48 95 11/03/18 15:22 96 11/03/18 12:57 96 11/03/18 11:58 100 11/03/18 11:34 11/03/18 10:59 99 11/03/18 10:27 100 11/03/18 10:04 100 11/03/18 09:45 99 11/03/18 09:40 98 11/03/18 09:35 99 11/03/18 09:30 97 11/03/18 09:25 96 11/03/18 09:20 97 11/03/18 09:15 97 11/03/18 09:11 100 11/03/18 09:10 100 11/03/18 09:05 99 11/03/18 09:00 100 11/03/18 08:57 95 Pain Intensity Left Hip: Pain Intensity: 4 Notes Mental Status: alert / awake / arousable and participated in evaluation Patient Amnestic to Procedure: Yes Nausea / Vomiting: adequately controlled Pain: adequately controlled Airway Patency, RR, SpO2: stable & adequate BP & HR: stable & adequate Hydration State: stable & adequate Neuraxial Anesthesia: was administered and sensory block resolved Anesthetic Complications: no major complications apparent and Pt Satisfied with anesthetic care
[2018-11-04] MEDS: ATENOLOL 25 MG TABLET PO SCH (08:30)
[2018-11-04] MEDS: OXYCODONE HCL IR 5 MG TAB (IMMEDIATE RELEASE) PO PRN ×2 (08:33→15:19)
[2018-11-04] MEDS: ATORVASTATIN 40 MG TAB PO SCH (20:58)
[2018-11-04] MEDS: SENNA 8.6 MG TAB PO SCH (20:58)
[2018-11-04 23:18] VITALS: TEMP 97.7
[2018-11-05] MEDS: KETOROLAC TROMETHAMINE 15 MG/ML VIAL IV SCH ×2 (00:08→05:25)
[2018-11-05] MEDS: ACETAMINOPHEN 500 MG TAB PO SCH (05:25)
[2018-11-05 06:56] VITALS: BP 148/83; PULSE 72; O2SAT 99
--- NOTE | 2018-11-05 07:29 | Orthopedic Progress Note ---
Date of Service November 05, 2018 Assessment & Plan (1) Osteoarthritis of left hip: Overall she is doing very well. She is not having much pain in the left hip. She is been ambulate well with physical therapy. She is on aspirin for DVT prophylaxis. She can be discharged home later this morning. She will follow-up with orthopedics in 2 weeks. Present on Admission?: Yes Emily Garcia was seen and examined at bedside this morning. Overall she is doing very well. She walked yesterday with physical therapy. Her pain is controlled and she has no complaints. Physical Exam Vital Signs (Past 24 Hours): Last Vital Signs Temp 36.5 C 11/05/18 06:55 Pulse 72 11/05/18 06:55 Resp 16 11/05/18 06:55 BP 148/83 H 11/05/18 06:55 Pulse Ox 99 11/05/18 06:55 Musculoskeletal: On physical examination of the left hip, the Tiffanie VAC dressing is to suction. Her leg lengths are equal. She is active dorsiflexion and plantarflexion of her left ankle. Sensation is intact throughout.
--- NOTE | 2018-11-05 07:30 | Discharge Summary ---
Date of Service November 05, 2018 Admission HPI Per Admitting Provider Radha is a pleasant 73-year-old female who is been dealing with chronic increasing left hip and groin pain. X-rays and clinical examination have been diagnostic for primary osteoarthritis of the left hip. After failing conservative treatment, she has elected proceed with a left total hip arthroplasty. Specialty Data Orthopedic H & H 10/20/18 11/04/18 Range/Units 09:56 05:15 Hgb 13.4 9.5 L (12.0-16.0) g/dL Hct 39.5 28.7 L (37-47) % Coagulation 10/20/18 Range/Units 09:56 INR 1.0 (0.9-1.1) Discharge Data Consultations 11/04/18 08:00 Consult Case Management - Discharge Planning Routine Procedures Performed Operation Date: 11/03/18 07:00 Actual Procedures p Left Anterior Total Hip Arthroplasty(Left) - Chetan Marina DO [facility] Course (1) Osteoarthritis of left hip: On November 03, 2018 Radha arrived at [facility] and underwent a left anterior total hip arthroplasty without complication. She had a spinal anesthetic. Postoperatively she was started on aspirin for DVT prophylaxis and discharged to general orthopedic floors. Her hospital course is uneventful. On postop day #1 her H&H was stable and her pain was well controlled. She was able to ambulate well with physical therapy. On postop day #2 she continued to do well. She did not have too much pain in the hip. She felt stable on her feet. She was then discharged home with oral pain medications and aspirin. She will follow-up with orthopedics in 2 weeks. Discharge Instructions Home Medications Medication Instructions Recorded Confirmed atenolol 25 mg PO QAM 10/12/18 11/03/18 atorvastatin 40 mg PO PM 10/12/18 11/03/18 calcium carbonate-vitamin D3 1 cap PO BID 10/12/18 11/03/18 [Calcium 600 + D(3)] cholecalciferol (vitamin D3) 2,000 unit PO QAM 10/12/18 11/03/18 [Vitamin D3] zocunjhk-damc-hue6-C-aguila-bosw 1 tab PO BID 10/12/18 11/03/18 [Glucosamine-Chondroitin 3X] hydrochlorothiazide 12.5 mg PO QAM 10/12/18 11/03/18 lorazepam 0.5 mg PO HS PRN 10/12/18 11/03/18 ranitidine HCl 150 mg PO BID 10/12/18 11/03/18 Previous Rx's Medication Instructions Recorded aspirin [Aspirin Low Dose] 81 mg PO BID #84 tab 11/04/18 oxycodone 5 - 10 mg PO Q4H PRN #40 tab 11/04/18
[2018-11-05] MEDS: ASPIRIN 81 MG ECTAB PO SCH (09:31)
[2018-11-05] MEDS: hydroCHLOROthiazide 25 MG TAB PO SCH (09:31)
[2018-11-05] MEDS: ATENOLOL 25 MG TABLET PO SCH (09:31)
[2018-11-05] MEDS: MULTIVITAMIN TAB PO SCH (09:31)
[2018-11-05] MEDS: DOCUSATE SODIUM 100 MG CAP PO SCH (09:32)
== END 2018-11-05 10:53 | disposition home health service (06) | DRG 470 ==
LOC: ASU 04:52 → 3E 08:50

== ENCOUNTER 2025-07-08 07:50 | Observation (INO) ==
--- NOTE | 2025-06-08 12:42 | PAT Medication Instructions ---
Medication Instructions Date of Service June 08, 2025 Home Medications Medication Instructions Recorded glucosamine 750 bs-cvacybdsdo-drq 1 tab PO BID #180 tabs 06/07/19 no.1 625 mg-C 30 xg-ysfw-ydkh tablet (Glucosamine-Chondroitin 3X) atenolol 25 mg tablet 25 mg PO QAM #90 tabs 06/22/24 hydrochlorothiazide 12.5 mg tablet 12.5 mg PO QAM #90 tabs 09/16/24 famotidine 20 mg tablet 20 mg PO BID #180 tabs 01/21/25 calcium 600 mg (as carbonate)-vitamin D3 5 mcg (200 unit) capsule (Calcium 600 + D(3)) 1 cap PO BID glucosamine 750 qw-izxgqvshcn-ebh no.1 625 mg-C 30 im-pnho-mxyk tablet (Glucosamine-Chondroitin 3X) 1 tab PO BID aspirin 81 mg tablet,delayed release (Rosalba Low Dose Aspirin) 81 mg PO DAILY cholecalciferol (vitamin D3) 50 mcg (2,000 unit) tablet (Vitamin D3) 5,000 unit PO QAM atenolol 25 mg tablet 25 mg PO QAM hydrochlorothiazide 12.5 mg tablet 12.5 mg PO QAM famotidine 20 mg tablet 20 mg PO BID atorvastatin 40 mg tablet 40 mg PO QPM nitroglycerin 0.4 mg sublingual tablet 0.4 mg sublingual UD PRN chest pain Continue as directed nitroglycerin 0.4 mg sublingual tablet 0.4 mg sublingual UD PRN chest pain (if needed) ASK your prescriber and surgeon aspirin 81 mg tablet,delayed release (Rosalba Low Dose Aspirin) 81 mg PO DAILY STOP taking 2 weeks before surgery (or as soon as possible if surgery is within 2 weeks) glucosamine 750 hj-ihlnbldxsg-oyi no.1 625 mg-C 30 wf-voyf-ypsh tablet (Glucosamine-Chondroitin 3X) 1 tab PO BID DO NOT take the morning of surgery calcium 600 mg (as carbonate)-vitamin D3 5 mcg (200 unit) capsule (Calcium 600 + D(3)) 1 cap PO BID cholecalciferol (vitamin D3) 50 mcg (2,000 unit) tablet (Vitamin D3) 5,000 unit PO QAM hydrochlorothiazide 12.5 mg tablet 12.5 mg PO QAM Take morning of surgery With a small sip of water, OTHERWISE NOTHING TO EAT OR DRINK AFTER MIDNIGHT: atenolol 25 mg tablet 25 mg PO QAM famotidine 20 mg tablet 20 mg PO BID Take evening before surgery calcium 600 mg (as carbonate)-vitamin D3 5 mcg (200 unit) capsule (Calcium 600 + D(3)) 1 cap PO BID famotidine 20 mg tablet 20 mg PO BID atorvastatin 40 mg tablet 40 mg PO QPM Other Notes If you have any questions please call us at [phone] or [phone] or [phone] or [phone]
--- NOTE | 2025-06-15 08:20 | Anesthesiology Consultation ---
Date of Service June 15, 2025 Assessment & Plan (1) Encounter for pre-operative examination: - awaiting 06/17 [place] PCP office visit/clearance. - Outpatient joint assessment: Patient is currently scheduled for inpatient pathway. If re-evaluated and patient/surgeon requests outpatient pathway, patient is not a candidate for outpatient joint program. Chart Review Chart Review: Patient seen in Pre Admission Testing Teaching & Discussion Pre-Anesthesia Teaching/Discussion Notes: Instructed NPO after midnight before surgery, except medications with 15 cc of water. Medication instructions provided according to the PAT guidelines. History Surgery Operation Date: 07/08/25 12:00 Proposed Procedures p Robotic Assisted Right Total Knee Arthroplasty - Chetan Marina DO Height/Weight Height: 5 ft 2 in Weight: 56.2 kg Allergies Allergy/AdvReac Type Severity Reaction Status Date / Time No Known Allergies Allergy Verified 06/08/25 09:29 Medications Home Medications Medication Instructions Recorded Confirmed Last Taken calcium 600 mg (as 1 cap PO BID 10/12/18 06/08/25 11/02/18 20:30 carbonate)-vitamin D3 5 mcg (200 unit) capsule (Calcium 600 + D(3)) glucosamine 750 mz-cnqunfpemo-mkz 1 tab PO BID #180 tabs 06/07/19 06/08/25 Unknown no.1 625 mg-C 30 pb-gdom-mqln tablet (Glucosamine-Chondroitin 3X) aspirin 81 mg tablet,delayed 81 mg PO DAILY 10/22/22 06/08/25 Unknown release (Rosalba Low Dose Aspirin) cholecalciferol (vitamin D3) 50 5,000 unit PO QAM 02/21/23 06/08/25 Unknown mcg (2,000 unit) tablet (Vitamin D3) hydrochlorothiazide 12.5 mg tablet 12.5 mg PO QAM #90 tabs 09/16/24 06/08/25 Unknown famotidine 20 mg tablet 20 mg PO BID #180 tabs 01/21/25 06/08/25 Unknown atorvastatin 40 mg tablet 40 mg PO QPM 06/08/25 06/08/25 Unknown nitroglycerin 0.4 mg sublingual 0.4 mg sublingual UD PRN chest pain 06/08/25 06/08/25 Unknown tablet atenolol 25 mg tablet See Rx Instructions .Route 06/13/25 Unknown .COMPLEX #90 tabs Past Medical History Medical History Abnormality of left breast on screening mammogram repeat mammogram jul 2025. CAD (coronary artery disease) "non-occlusive CAD" Cystocele, unspecified GERD (gastroesophageal reflux disease) controlled, stable per pt History of colon polyps History of COVID-19 + testing in 2019. no hx hospitalization. History of SCC (squamous cell carcinoma) of skin HTN (hypertension) ontrolled, stable per pt Hyperlipidemia Osteoarthritis Osteoporosis Pancreatic cyst [facility], last check in approx 2022. Patient denies h/o stroke, seizures, heart attack, heart failure, DM, blood clots/DVTs or blood transfusions. Exercise / Class Metabolic Activity II 4-5 Yardwork/Stairs/Walk up hill (denies chest discomfort or shortness of breath with one flight of stairs) Past Family History Family History Mother Coronary heart disease Father Coronary heart disease Brother Stomach cancer Myocardial infarction Pacemaker Denies family history of Ovarian cancer Prostate cancer Breast cancer Colorectal cancer Past Surgical History Surgical History History of surgery removal of skin cancer, right leg. Hx of appendectomy Hx of cardiac cath 09/06/2008 [place] nonocclusive CAD no stent(s) Hx of colonoscopy 08/07/2020 repeat 5yrs Status post hip replacement left Past Anesthesia History No Hx of Anesthesia Complications and No Family Hx of Anesthesia Complications History of PONV No Hx of PONV and No Hx of Motion Sickness Social History Smoking Status: Never smoker Do You Dip or Chew Tobacco: No Hx Alcohol Use: No Hx Substance Use: No substance use type: does not use Last Used Substance: Unknown Review of Systems Patient denies chest pain, shortness of breath, dyspnea on exertion, snoring, witnessed apneas, fever, chills, cough, wheezing, or palpitations. Physical Exam Vital Signs Vitals BP 139/78 P 72 TEMP 98.2 SP02 97% on RA RESP 17 Physical Patient resting comfortably in chair in no acute distress, alert and oriented, responding appropriately throughout visit Full cervical extension range of motion without pain TMD 3.5 finger breadths Mallampati Score 2 Dentition: edentulous, full upper and lower dentures Lungs: normal respiratory effort. Good air movement, clear throughout to auscultation, no adventitious breath sounds Cardiac: regular rate and rhythm, no murmurs noted Carotid arteries: negative bruit bilat Lab Results Anesthesia Preop Results Results Anesthesia Widget: WBC 5.42 K/ul (4.8-10.8) 06/15/25 Hgb 12.4 g/dl (12.0-16.0) 06/15/25 Hct 37.7 % (37.0-47.0) 06/15/25 Plt 235 K/uL (130-400) 06/15/25 Na 140 mmol/L (136-145) 06/15/25 K 4.4 mmol/L (3.5-5.1) 06/15/25 Cl 103 mmol/L (98-107) 06/15/25 CO2 32 mmol/L (21-32) 06/15/25 BUN 15 mg/dl (6-23) 06/15/25 Creat 0.67 mg/dl (0.6-1.2) 06/15/25 Glucose Level 100 mg/dl (70-99(Fasting)) H 06/15/25 PT 10.8 Seconds (9.0-12.0) 06/15/25 PTT 24 Seconds (21-31) 06/15/25 INR 1.0 (0.9-1.1) 06/15/25 Blood Type A Positive 06/15/25 Antibody Screen NEGATIVE 06/15/25 Testing Electrocardiogram Date: 06/15/25 Sinus bradycardia, rate 59 bpm Left axis deviation Minimal voltage criteria for LVH, may be normal variant Inferior infarct, age undetermined Anterior infarct, age undetermined No significant change vs 10/20/2018 EKG Chest X-Ray Date: 06/15/25 There is mild cardiomegaly without pulmonary vascular congestion. No consolidation or pleural effusion seen. Stable mild scoliosis and aortic tortuosity. IMPRESSION: No acute findings.
--- NOTE | 2025-07-07 07:43 | History & Physical Report ---
Date of Service July 07, 2025 Assessment & Plan (1) Osteoarthritis of right knee: We will proceed with a right total knee arthroplasty. Postoperatively, she will be started on aspirin for DVT prophylaxis and kept overnight in the hospital for postop medical management. She plans to have the hospital set up home health at discharge. History of Present Illness Chief Complaint: Osteoarthritis right knee. Primary Care Provider: David Urbina MD Radha is a pleasant 79-year-old female who has been dealing with chronic increasing right knee pain. X-rays and clinical exam from prior visits have been diagnostic for arthritis of both knees with her right worse than her left. She has been getting injections for years. Unfortunately, they are no longer he lping. She cannot live with the knee the way it is. It has been much worse over the past few months. After failed conservative treatment, she has elected to proceed with a right total knee arthroplasty. Allergies Allergy/AdvReac Type Severity Reaction Status Date / Time No Known Allergies Allergy Verified 06/17/25 13:51 Home Medications Medication Instructions Recorded Confirmed Type calcium 600 mg (as 1 cap PO BID 10/12/18 06/17/25 History carbonate)-vitamin D3 5 mcg (200 unit) capsule (Calcium 600 + D(3)) glucosamine 750 bh-thaigrklxl-zmm 1 tab PO BID #180 tabs 06/07/19 06/17/25 Rx no.1 625 mg-C 30 li-erxk-simn tablet (Glucosamine-Chondroitin 3X) aspirin 81 mg tablet,delayed 81 mg PO DAILY 10/22/22 06/17/25 History release (Rosalba Low Dose Aspirin) cholecalciferol (vitamin D3) 50 5,000 unit PO QAM 02/21/23 06/17/25 History mcg (2,000 unit) tablet (Vitamin D3) hydrochlorothiazide 12.5 mg tablet 12.5 mg PO QAM #90 tabs 09/16/24 06/17/25 Rx famotidine 20 mg tablet 20 mg PO BID #180 tabs 01/21/25 06/17/25 Rx atorvastatin 40 mg tablet 40 mg PO QPM 06/08/25 06/17/25 History nitroglycerin 0.4 mg sublingual 0.4 mg sublingual UD PRN chest pain 06/08/25 06/17/25 History tablet atenolol 25 mg tablet See Rx Instructions .Route 06/13/25 06/17/25 Rx .COMPLEX #90 tabs Past Med/Surg History Problem List Breast cancer, left Encounter for pre-operative examination Abnormality of left breast on screening mammogram Nocturnal leg cramps Osteoporosis Osteoarthritis of left knee Left knee pain Osteoarthritis of right knee Grief reaction Bakers cyst Cystocele Adenomatous colon polyp (Chronic) Benign essential hypertension (Chronic) CAD (coronary artery disease) (Chronic) Chronic insomnia (Chronic) Hyperlipidemia (Chronic) Pancreatic cyst (Chronic) IP[facility] following with [facility] Postmenopausal osteoporosis (Chronic) Reclast done February 04, 2022 Vitamin D deficiency (Chronic) GERD (gastroesophageal reflux disease) Medical History CAD (coronary artery disease) "non-occlusive CAD" Cystocele, unspecified History of COVID-19 + testing in 2019. no hx hospitalization. HTN (hypertension) ontrolled, stable per pt Hyperlipidemia Osteoporosis Abnormality of left breast on screening mammogram repeat mammogram jul 2025. History of colon polyps GERD (gastroesophageal reflux disease) controlled, stable per pt Pancreatic cyst [facility], last check in approx 2022. History of SCC (squamous cell carcinoma) of skin Osteoarthritis Surgical History History of surgery removal of skin cancer, right leg. Status post hip replacement left Hx of colonoscopy 08/07/2020 repeat 5yrs Hx of cardiac cath 09/06/2008 [place] nonocclusive CAD no stent(s) Hx of appendectomy Family History Mother Coronary heart disease Father Coronary heart disease Brother Stomach cancer Myocardial infarction Pacemaker Denies family history of Ovarian cancer Prostate cancer Breast cancer Colorectal cancer Social History Smoking Status: Never smoker Second Hand Exposure: Yes; Do You Dip or Chew Tobacco: No; Hx Alcohol Use: No Hx Substance Use: No Preferred Language: Estonian Communication Ability: Effective Visual Impairment: Limited Hearing Ability: Use of Hearing Aid Telegraphic Service Dispatcher Required: No Beliefs That Will Affect Care: None marital status: Current Living Situation: Alone current occupational status: retired current occupation: part-time house work How many Children do You have: 2 Feels Safe at Home: Yes Childhood Exposure to Second-Hand Smoke: Yes Diet: regular caffeine: Yes (tea/coffee) during the past year weight has: remained stable Dental Care, Regularly: No Physical Activity Frequency: Daily Physical Activity Frequency Comment: Walk outside, gardening Seatbelt Use: always Sunscreen Use: Yes Do you think of yourself as: straight/heterosexual Gender Identity: Female Assistive Devices: Denture - Upper, Denture - Lower, Glasses and Hearing Aid - Bilateral Review of Systems All systems reviewed & are unremarkable except as noted in HPI & below. Physical Exam On physical exam of the right knee, she has a varus deformity. Tenderness to palpation of the distal medial femoral condyle and over the medial joint line.. Constitutional WD/WN, vitals as above Eyes PERRL, conjunctivae normal, anicteric sclerae ENMT external ear and nose normal, oropharynx normal Neck trachea midline, no thyromegaly Respiratory normal respiratory effort Cardiovascular RRR, no murmur, no edema Gastrointestinal (Abdomen) normal bowel sounds, soft, nontender, no hepatosplenomegaly Psychiatric A+Ox3, euthymic affect Results & Data Results & Data Laboratory Results . Diagnostic Findings . PG Care Time/CCT Total # of Minutes Spent Total Time Spent with Patient: Total time spent is greater than 50% in coordination of care (as documented) at patient's floor/unit and/or counseling patient: Coding Level of Care Code None Diagnoses Primary osteoarthritis of right knee M17.11 Osteoarthritis type: primary (1) Osteoarthritis of right knee Osteoarthritis type: primary Qualified Code(s): M17.11 - Unilateral primary osteoarthritis, right knee
[~2025-07-08 07:50] MED LIST changes: -ATEN-173 PO; -ATOR-24 PO; -CALC500C70 PO; -CHOL1CAP57 PO; -GLUC1CAP35 PO; -HYDR12.56 PO; -LORA-741 PO; -RANI150T85 PO; +ROPIVACAINE 0.5% 5 MG/ML 30 ML VIAL ONE
[2025-07-08] MEDS: LR 60ML/HR IV SCH (08:51)
[2025-07-08] MEDS: LR 500ML BOLUS, THEN 15ML/HR IV SCH (08:51)
--- NOTE | 2025-07-08 08:55 | History & Physical Bridge Note ---
Date of Service July 08, 2025 History & Physical Bridge Note I have examined the patient, reviewed the History & Physical and in the interval since the performance of the History & Physical I have noted the following changes of clinical significance: no changes noted
[2025-07-08] MEDS: ACETAMINOPHEN 500 MG TAB PO SCH ×2 (08:58→14:39)
[2025-07-08] MEDS: dexAMETHasone**PF** 10 MG/ML VIAL IV SCH (08:59)
[2025-07-08] MEDS: FAMOTIDINE 20 MG TAB PO SCH ×2 (08:59→20:22)
[2025-07-08] MEDS: GABAPENTIN 300 MG CAP PO SCH (08:59)
[2025-07-08] MEDS ORDERED: ATROPINE SULFATE 0.1 MG/ML 10ML SYR IV PRN (09:09)
[2025-07-08] MEDS ORDERED: KETOROLAC 30 MG/ML VIAL IV PRN (09:09)
[2025-07-08] MEDS ORDERED: ONDANSETRON INJ 2 MG/ML 2 ML VIAL IV PRN ×2 (09:09→12:47)
[2025-07-08] MEDS ORDERED: HYDROmorphone INJ 1 MG/ML SYRINGE IV PRN (09:09)
[2025-07-08] MEDS ORDERED: ONDANSETRON INJ 2 MG/ML 2 ML VIAL ONE (09:25)
[2025-07-08] MEDS ORDERED: MIDAZOLAM HCL 1 MG/ML 2ML VIAL ONE (09:25)
[2025-07-08] MEDS ORDERED: DEXAMETHASONE SOD INJ 4 MG/ML VIAL ONE (09:25)
[2025-07-08] MEDS ORDERED: PROPOFOL IV EMULSION 10 MG/ML 20 ML VIAL IV ONE (09:25)
[2025-07-08] MEDS ORDERED: LIDOCAINE 2% 2 ML VIAL/AMP(20MG/ML) INFIL ONE (09:25)
[2025-07-08] MEDS: TRANEXAMIC ACID 1,000 MG **IV Pre-op IV SCH (09:38)
[2025-07-08] MEDS: ORTHO JOINT ANESTHETIC ONE (10:28)
[2025-07-08] MEDS: ROPIV 0.5% 246mg, Ketorolac 30mg, EPINEPHrine 0.5mg in NSS INFIL SCH (10:28)
--- NOTE | 2025-07-08 10:50 | Operative Report ---
PG Post Operative Report Pre & Post Diagnosis Operation Date: 07/08/25 10:00 Pre-Op Diagnosis: Right Knee Osteoarthritis Post-Op Diagnosis: Right Knee Osteoarthritis I identified the patient and participated in the time-out.: Yes Procedure Operation Date: 07/08/25 10:00 Actual Procedures p Robotic Assisted Right Total Knee Arthroplasty(Right) - Chetan Marina DO Surgeon Chetan Marina DO Leg Assembler Filippo Munson PA-C Estimated Blood Loss 30 Findings Consistent with Post-Op Diagnosis Specimens Right femoral and tibial bone Description of Procedure Implants used: I used a Jean Persona total knee arthroplasty system with a size 6 standard PS femur, C tibia, and a size 12 CPS polyethylene bearing. All components were press-fit in place. Radha arrived [facility] for the above procedure. She was seen in the preoperative holding area and the operative extremity was identified and signed. She was given a preoperative antibiotic, TXA, a spinal anesthetic and an adductor nerve block. She was taken back to the operating room and laid on the table in supine position. She was given basic sedation. The operative knee was then prepped and draped in sterile fashion. A timeout was done, and the patient and the operative extremity was properly identified. A midline incision was made directly over the patella. Dissection was taken down to the extensor mechanism. A medial parapatellar arthrotomy was used. The medial retinaculum was released and the fat pad was mostly excised. The knee was flexed and the ACL, PCL, and meniscus were removed. The alignment of the knee replacement was assisted with a Yantra robotic knee. The femoral array was pinned in the distal femur and the tibial array was pinned using a percutaneous technique in the upper shaft of the tibia. The robot was appropriately calibrated and the structure of the knee was mapped out. The components were then manipulated on the screen to account for any malalignment and to assist in gap balancing. Once I was happy with the placement of the components on the screen, a distal femoral cutting guide was brought in place. The distal femur was then resected. The femur measured to be a size 6. A 4-in-1 cutting block was then put into place by the robot and 2 peg holes were drilled. The 4-in-1 cutting block was then impacted into place and anterior, posterior, and chamfer cuts were made. The cutting block was then brought down to the tibia and pinned into place. The proximal tibia was then r esected. The posterior aspect of the knee was then opened up and any additional meniscus fragments and osteophytes were removed. The tibia measured to be a size C. The tibial plate was then placed in the appropriate rotation and the tibia was drilled and punched. Trial components were then placed. A size 12 CPS polyethylene insert was then trialed. The knee was brought through a full range of motion and felt to be stable. Trial components were then removed. The surrounding soft tissues were injected with 100 cc of an orthopedic pain control cocktail. All components were then press-fit into place. The final polyethylene insert was then snapped into place. The tourniquet was deflated. Hemostasis was obtained. A dilute betadyne lavage was then done for 3 minutes. The joint was then irrigated with normal saline solution. The medial parapatellar arthrotomy was then closed with #1 Vicryl suture. The skin was closed with 2-0 Vicryl, 3-0V lock suture, and [place] Zipline. A soft compressive dressing was placed. She was then transferred to a hospital bed and taken to the postanesthesia care unit in stable condition. She tolerated the procedure well. Filippo Munson PA-C, was present for the entire procedure. He was critical for patient positioning, prepping, draping, retraction exposure, wound closure and application of sterile dressing. I attest to the content of the Intraoperative Record and any orders documented therein. Any exceptions are noted below.
[2025-07-08] MEDS ORDERED: PROPOFOL IV EMULSION 10 MG/ML 100 ML VIAL IV ONE (10:52)
--- NOTE | 2025-07-08 11:37 | XRay Report ---
XR knee RT 1 or 2V routine CLINICAL HISTORY: Surgical Post Op COMPARISON: None FINDINGS: Right knee prosthesis shows no hardware complication. There is expected soft tissue gas. IMPRESSION: Unremarkable postoperative exam. ACT 112: Negative or not required by law. Electronically signed by: Stephen Gilman M.D. 07/08/2025 11:34 AM
--- NOTE | 2025-07-08 12:05 | Anesthesiology Progress Note ---
Date of Service July 08, 2025 Anesthesia Post Procedure Vital Signs Vital Signs: Temp Pulse Pulse Resp BP Pulse Ox O2 Del Method 07/08/25 11:55 36.5 C 72 15 129/68 99 Room Air 07/08/25 11:45 67 16 126/74 100 Room Air 07/08/25 11:35 68 16 136/67 100 Room Air 07/08/25 11:25 75 18 132/73 100 Oxymask 07/08/25 11:18 36.1 C L 76 16 131/78 100 Oxymask 07/08/25 08:34 36.8 C 70 20 172/93 H 95 Room Air O2 Flow Rate 07/08/25 11:55 07/08/25 11:45 07/08/25 11:35 07/08/25 11:25 2 07/08/25 11:18 7 07/08/25 08:34 Transfer of Care Handoff Completed per policy Notes Mental Status: alert / awake / arousable Patient Amnestic to Procedure: Yes Nausea / Vomiting: adequately controlled Pain: adequately controlled Airway Patency, RR, SpO2: stable & adequate BP & HR: stable & adequate Hydration State: stable & adequate Neuraxial Anesthesia: was administered and sensory block is resolving Anesthetic Complications: no major complications apparent
[2025-07-08] MEDS ORDERED: METOCLOPRAMIDE HCL INJ 5 MG/ML 2 ML VIAL IV PRN (12:47)
[2025-07-08] MEDS ORDERED: MAGNESIUM HYDROXIDE SUSP 30 ML UDC PO PRN (12:47)
[2025-07-08] MEDS ORDERED: HYDROmorphone INJ 0.5 MG/0.5 ML SYR IV PRN (12:47)
[2025-07-08] MEDS ORDERED: NALOXONE HCL 0.4 MG/1 ML VIAL/CARP IV PRN (12:47)
--- NOTE | 2025-07-08 12:50 | Electrocardiogram Report ---
Test Reason : Blood Pressure : */* mmHG Vent. Rate : 71 BPM Atrial Rate : 71 BPM P-R Int : 148 ms QRS Dur : 96 ms QT Int : 450 ms P-R-T Axes : 2 -43 -16 degrees QTcB Int : 489 ms Sinus rhythm with occasional Premature ventricular complexes Left axis deviation Anterior infarct (cited on or before 15-Jun-2025) QTcB >= 480 msec Abnormal ECG When compared with ECG of 15-Jun-2025 08:19, Premature ventricular complexes are now Present QT has lengthened Confirmed by Ryan Forrester ([id number]) on 07/08/2025 12:49:31 PM Referred By: Chetan Marina Confirmed By: Ryan Forrester
[2025-07-08] MEDS: SODIUM CHLORIDE 0.9% 1,000 ML IV SCH (13:58)
[2025-07-08] MEDS: KETOROLAC TROMETHAMINE 15 MG/ML VIAL IV SCH (14:01)
[2025-07-08] MEDS: SENNA 8.6 MG TAB PO SCH (20:21)
[2025-07-08] MEDS: ATORVASTATIN 40 MG TAB PO SCH (20:21)
[2025-07-08] MEDS: DOCUSATE SODIUM 100 MG CAP PO SCH (20:21)
[2025-07-08] MEDS: ASPIRIN 81 MG ECTAB PO SCH (20:22)
[2025-07-08] MEDS: diphenhydrAMINE Capsule 25 MG CAP PO PRN (22:11)
[2025-07-09 04:37] VITALS: RESP 18; O2SAT 97
[2025-07-09 07:21] VITALS: BP 150/77; PULSE 87; TEMP 97.7
--- NOTE | 2025-07-09 07:43 | Orthopedic Progress Note ---
Date of Service July 09, 2025 Assessment & Plan (1) Status post total right knee replacement: Overall she is doing very well. She is not having much pain in the right knee. She will be seen by physical therapy today for ambulation and range of motion exercises. The nursing staff can change her dressing after physical therapy. She is on aspirin for DVT prophylaxis. As long as she does well with physical therapy, she can be discharged home later today. Otherwise, we will keep her until tomorrow. Emily Garcia was seen and examined at bedside this morning. Overall she is doing very well. She is not having much pain in the right knee. She does complain of some weakness in the right leg when she stands. She has been ambulating to the bathroom but she needs some assistance due to her right leg weakness. She has no other complaints. Review of Systems All systems reviewed & are unremarkable except as noted in HPI & below. Physical Exam On physical exam of the right knee, the dressing is clean and dry. Legs out full extension. She has active dorsiflexion and plantarflexion of her right ankle.. Results & Data Results & Data Laboratory Results . Diagnostic Findings Postoperative x-rays of the right knee show the prosthesis to be in anatomic alignment without any evidence of fracture, dislocation, or loosening.. PG Care Time/CCT Total # of Minutes Spent Total Time Spent with Patient: Total time spent is greater than 50% in coordination of care (as documented) at patient's floor/unit and/or counseling patient: Coding Level of Care Code 60126 Post Operative Follow-Up Diagnoses Status post total right knee replacement Z96.651
[2025-07-09] MEDS: ATENOLOL 25 MG TABLET PO SCH (08:07)
[2025-07-09] MEDS: MULTIVITAMIN TAB PO SCH (08:07)
[2025-07-09] MEDS: hydroCHLOROthiazide 25 MG TAB PO SCH (08:08)
== END 2025-07-09 13:53 | disposition home or self-care (01) ==
LOC: PACUINP 07:50 → ASU 07:50 → 3N 13:36